=== PATIENT | female | born 1970 | race Caucasian/White ===

== ENCOUNTER → 2017-08-15 12:11 | Outpatient (CLI) | payer BC, SELFPAY ==
--- NOTE | 2017-08-15 12:14 | BI_ITS ---
MAMMOGRAPHY - BILATERAL SCREENING REASON FOR EXAM: Female, 46 years old. Routine annual screening examination. PERTINENT HISTORY: Non-contributory. TECHNIQUE: Digital bilateral breast john (3D mammographic acquisition) in the CC and MLO projections. 2-D mediolateral oblique (MLO) and craniocaudad (CC) views of both breasts were obtained. CAD: Full Field Digital Mammography with Computer Added Detection was performed. COMPARISON: Comparison is made with prior study dated July 05, 2016. FINDINGS: Breast Composition: There are scattered areas of fibroglandular density. There are no dominant masses or suspicious calcifications. Stable benign-appearing bilateral axillary lymph nodes. No other significant abnormalities are identified. There has been no significant change since the prior study. BI/SCREENING MAMM (CAD), BILAT IMPRESSION: Stable bilateral screening mammogram. Yearly follow-up mammogram recommended. (A) ASSESSMENT CATEGORY: BIRADS Category 2: Benign. A letter regarding these results will be sent to the patient by the facility within 30 days. Approximately 10% of breast cancers are not detected by mammography. A normal mammogram should not delay biopsy of a clinically suspicious abnormality. [id number] Electronically Signed: Se Bateman MD at 14:16 EDT Tel [phone], Service support ,
== END ==
PROVIDERS: Family Provider Family Medicine; PCP Family Medicine; Visit Provider Obstetrics & Gynecology
DX: Z12.31 Encounter for screening mammogram for malignant neoplasm of breast (principal)
CPT/HCPCS: 77063; 77067

== ENCOUNTER → 2018-12-22 10:37 | Outpatient (CLI) | payer BC, SELFPAY ==
--- NOTE | 2018-12-22 10:41 | BI_ITS ---
MAMMOGRAPHY - BILATERAL SCREENING REASON FOR EXAM: Female, 48 years old. Routine annual screening examination. PERTINENT HISTORY: Non-contributory. TECHNIQUE: Digital bilateral breast francesca (3D mammographic acquisition) in the CC and MLO projections. 2-D mediolateral oblique (MLO) and craniocaudad (CC) views of both breasts were obtained. CAD: Full Field Digital Mammography with Computer Added Detection was performed. COMPARISON: Comparison is made with prior study dated August 15, 2017 and July 05, 2016. FINDINGS: Breast Composition: There are scattered areas of fibroglandular density. There are no dominant masses or suspicious calcifications. Stable benign-appearing bilateral axillary lymph nodes. No other significant abnormalities are identified. There has been no significant change since the prior study. BI/SCREEN MAMM (CAD) W/FRANCESCA BILAT IMPRESSION: Stable bilateral screening mammogram. Yearly follow-up mammogram recommended. (A) ASSESSMENT CATEGORY: BIRADS Category 2: Benign. A letter regarding these results will be sent to the patient by the facility within 30 days. Approximately 10% of breast cancers are not detected by mammography. A normal mammogram should not delay biopsy of a clinically suspicious abnormality. [id number] Electronically Signed: Se Bateman, at 8:51 EST , Service support ,
== END ==
PROVIDERS: Family Provider Family Medicine; PCP Family Medicine; Referring Provider Obstetrics & Gynecology; Visit Provider Obstetrics & Gynecology
DX: Z12.31 Encounter for screening mammogram for malignant neoplasm of breast (principal)
CPT/HCPCS: 77063; 77067

== ENCOUNTER → 2020-02-04 16:22 | Outpatient (CLI) | payer BC, SELFPAY ==
--- NOTE | 2020-02-04 16:24 | BI_ITS ---
MAMMOGRAPHY - BILATERAL SCREENING REASON FOR EXAM: Female, 49 years old. Routine annual screening examination. PERTINENT HISTORY: Non-contributory. TECHNIQUE: Digital bilateral breast francesca (3D mammographic acquisition) in the CC and MLO projections. 2-D mediolateral oblique (MLO) and craniocaudad (CC) views of both breasts were obtained. CAD: Full Field Digital Mammography with Computer Added Detection was performed. COMPARISON: Comparison is made with prior study dated 12/22/2018 and 08/15/2017 FINDINGS: Breast Composition: There are scattered areas of fibroglandular density. There are no dominant masses or suspicious calcifications. Stable small benign appearing bilateral axillary lymph nodes. No other significant abnormalities are identified. There has been no significant change since the prior study. BI/SCREEN MAMM (CAD) W/FRANCESCA BILAT IMPRESSION: Stable bilateral screening mammogram. Yearly follow-up mammogram recommended. (A) ASSESSMENT CATEGORY: BIRADS Category 2: Benign. A letter regarding these results will be sent to the patient by the facility within 30 days. Approximately 10% of breast cancers are not detected by mammography. A normal mammogram should not delay biopsy of a clinically suspicious abnormality. [id number] Electronically Signed: Se Bateman, at 8:11 EST , Service support ,
== END ==
PROVIDERS: PCP Family Medicine; Referring Provider Obstetrics & Gynecology; Visit Provider Obstetrics & Gynecology
DX: Z12.31 Encounter for screening mammogram for malignant neoplasm of breast (principal)
CPT/HCPCS: 77063; 77067

== ENCOUNTER 2021-03-10 13:50 | Outpatient (CLI) | payer BC, SELFPAY ==
--- NOTE | 2021-03-10 13:54 | BI_ITS ---
MAMMOGRAPHY - BILATERAL SCREENING REASON FOR EXAM: Female, 50 years old. Routine annual screening examination. PERTINENT HISTORY: Non-contributory. TECHNIQUE: Digital bilateral breast francesca (3D mammographic acquisition) in the CC and MLO projections. 2-D mediolateral oblique (MLO) and craniocaudad (CC) views of both breasts were obtained. CAD: Full Field Digital Mammography with Computer Added Detection was performed. COMPARISON: Comparison is made with prior study dated 02/04/2020 and 12/22/2018. FINDINGS: Breast Composition: There are scattered areas of fibroglandular density. There are no dominant masses or suspicious calcifications. No other significant abnormalities are identified. There has been no significant change since the prior study. BI/SCRN MAMM (CAD)W/FRANCESCA BILAT IMPRESSION: Stable bilateral screening mammogram. Yearly follow-up mammogram recommended. (A) ASSESSMENT CATEGORY: BIRADS Category 1: Negative. A letter regarding these results will be sent to the patient by the facility within 30 days. Approximately 10% of breast cancers are not detected by mammography. A normal mammogram should not delay biopsy of a clinically suspicious abnormality. [id number] Electronically Signed: Se Bateman MD at 14:28 EST ,
== END 2021-03-10 23:59 | disposition short-term general hospital (02) ==
LOC: OPBI 13:51
PROVIDERS: PCP Family Medicine; Referring Provider Obstetrics & Gynecology; Visit Provider Obstetrics & Gynecology
DX: Z12.31 Encounter for screening mammogram for malignant neoplasm of breast (principal)
CPT/HCPCS: 77063; 77067

== ENCOUNTER → 2021-10-11 | Outpatient (CLI) | payer BC, SELFPAY ==
[2021-10-11] VITALS (9 sets, daily range): BP systolic 131–170; BP diastolic 62–104; PULSE 59–73; RESP 13–21; TEMP 36.6; O2SAT 95–99; BMI 31.3
--- NOTE | 2021-10-11 | IMM_PTH ---
PATIENT: JAYLIN GRIMM LOC: CT U#:[id number] AGE/SX: 51/F ROOM: RE10/11/[address]: Dr. Steve Merchant MD : 1970 BED: DIS: 10/11/2021 SPEC #: [id number] RECD: 10/12/21 12:28 STATUS: CRICKET REVeronique #: [id number] RUBÉN: 10/11/21 00:[address]: Steve Merchant DEPT: IMMUNOHISTOCHEMISTRY RECD BY: Lynsey Jacob ENTERED: 10/12/21 12:30 SP TYPE: IMMUNO OTHR DR: VERONICA Fernandez Tissues: Liver, NOS Procedures: Synapto (add) CD138 (add) CD56 (add) CHROMO (add) CK7 (add) CK8 (add) KAPPA (add) KI-67 (add) LAMBDA (add) Pankeratin (initial) PHYSICIAN & INSTITUTION [place] [id number] SPECIMEN INFORMATION: Tissue Source: Left lobe of liver Clinical Info: Liver mass Specimen Number: [id number] CPT code: 22173, 09955 x9 METHODOLOGY: Deparaffinized sections of prefer/formalin-fixed tissue or PAP/DQ stained slides are incubated with monoclonal/polyclonal antibodies/oligonucleotide probes. Localization is made via biotin free immunoperoxidase method. Appropriate controls are performed and reacted as expected. Results on target cell population are indicated in the following table: RESULTS: ANTIBODY / CLONE RESULT AE1-3 (AE1/AE3/PCK26) positive CK7 (OV-TL12/30) negative CK8 (96mtarA35) positive CD138 (B-A38) negative Lacoste (polyclonal) negative * Lambda (polyclonal) negative * CD56 (123C3.D5) positive Chromo (LK2H10) positive Synapto (polyclonal) positive Ki-67 (30-9) positive, low ~10% *?high background staining These tests were developed and their performance characteristics determined by [facility]. They may not have been cleared or approved by the U.S. Food and Drug Administration. The FDA has determined that such clearance or approval is not necessary. The above immunohistochemical/dualISH markers are ordered and reviewed by the Pathologist. 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 SJ:merrill 10/13/2021 Comment: Clinical correlation necessary. Case has been reviewed in consultation with Dr. Christy who concurs with the above diagnosis. IDC:AM
--- NOTE | 2021-10-11 | ASPIGT_PTH ---
PATIENT: JAYLIN GRIMM LOC: [place] U#:[id number] AGE/SX: 51/F ROOM: RE10/11/[address]: Dr. 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 See comment. FLORENTIN:merrill 10/13/2021 COMMENT The specimen is evaluated at the time of biopsy by Dr. Cai. Immediate Evaluation = Atypical cells noted. Immunohistochemistry ([id number]) supports the above diagnosis. Correlation with clinical, radiologic findings and appropriate follow up are necessary. Case has been reviewed in consultation with Dr. Christy who concurs with the above diagnosis. IDC:AM MICROSCOPIC DESCRIPTION Slides are reviewed. GROSS DESCRIPTION Received in fixative is one container labeled with the patient's name and designated liver left lobe. The specimen consists of multiple elongated fragments of lorenzo soft tissue that in aggregate measure 2.5 x 0.2 x 0.1 cm. The specimen is totally submitted in one cassette. Two touch imprints are prepared at the time of core biopsy. / FLORENTIN:merrill 10/11/2021 TC:0 CPT: 32038, 36140 ADDENDUM ADDENDUM ADDENDUM ADDENDUM ADDENDUM ADDENDUM ADDENDUM ADDENDUM ADDENDUM ADDENDUM 01/24/2022 09:46 ADDENDUM 01/24/2022 09:46 ADDENDUM 01/24/2022 09:46 ADDENDUM 01/24/2022 09:46 ADDENDUM 01/24/2022 09:46 This addendum is added to incorporate an outside pathology consultation report. The case was examined at [facility] (#[id number]) and the following diagnosis was rendered. Metastatic well differentiated neuroendocrine tumor, grade 2: Soft tissue (liver, left lobe) biopsy. Please see complete above mentioned consultation report in EMR
--- NOTE | 2021-10-11 08:06 | CT_ITS ---
PROCEDURE: CT DIRECTED CORE LIVER BIOPSY INDICATION: Female, 51 years old. LIVER MASS PHYSICIAN: Dr. JAZ Bryant CONSENT: Written informed consent was obtained having explained the risks, benefits and alternatives in detail with the patient who accepted the risks and agreed to proceed. Laboratory review and clinical assessment was performed. CONSCIOUS SEDATION PROTOCOL: The Drugs used were: 2 mg Versed, IV., and 50 mcg Fentanyl, IV. The sedation time was: 25 minutes. Conscious sedation was started at 8:58 AM and terminated at 9:23 AM The conscious sedation protocol was independently monitored. RADIATION DOSAGE (If Supplied By Facility): CTDIvol = ( 22 ) mGy, DLP = ( 885.87 ) mGycm Individualized dose optimization techniques were used for this CT. TECHNIQUE: Using CT image guidance with image documentation, a suitable location in the left lobe of the liver was identified. Using an anterior approach, puncture of the liver was uneventful with an 18-gauge core needle system. 5, 18-gauge core samples were obtained, and submitted in formalin to the pathologist for further assessment. Followup CT scan revealed no distinct sequelae. CT/Biopsy/Inj or Needle Placement IMPRESSION: 1. CT directed core needle biopsy of the liver, using CT image guidance with image documentation as described. 2. Conscious Sedation protocol utilized with independent monitoring. Electronically Signed: Se Bateman MD at 9:51 EDT ,
[2021-10-11 08:11] LABS: Absolute Lymphocyte Count 1.74 X10^3/uL (0.83-4.51); Absolute Neutrophil Count 3.2 X10^3/uL (2.0-7.7); Basophil# 0.08 X10^3/uL; Basophil% 1.4 % (0-1); Eosinophil# 0.22 X10^3/uL; Eosinophils% 3.9 % (0-5); Hematocrit 42.1 % (37-47); Hemoglobin 14.3 g/dL (12.0-15.0); Lymphocyte # 1.74 X10^3/ul (0.83-4.51); Lymphocyte % 30.5 % (19-41); Mean Corpuscular Volume 88.3 fL (81-99); Mean Platelet Vol. 8.7 fl (6.2-12.0); Monocyte# 0.41 X10^3/uL; Monocyte% 7.2 % (0-10); NRBC Flagged by Analyzer 0 % (0-5); Neutrophil # 3.23 X10^3/uL (2.7-7.7); Neutrophil % 56.6 % (47-70); Platelet Count 303 K/mm3 (150-450); RBC Distribution Width CV 12.6 % (11.6-14.6); Red Blood Count 4.77 M/mm3 (4.2-5.4); White Blood Count 5.7 K/mm3 (4.4-11.0)
[2021-10-11 08:22] LABS: International Normalized Ratio 1.1
[2021-10-11 08:24] LABS: Partial Thromboplast Time 27.4 Seconds (24.1-36.2)
[2021-10-11] MEDS: Midazolam 2 MG/2 ML Syringe IV (08:58)
[2021-10-11] MEDS: fentaNYL 100 MCG/2 ML Ampul IV (08:59)
[2021-10-11] MEDS: Lidocaine 2% (10 ml mdv) 10 ML Vial INFILT (09:10)
== END | disposition home or self-care (01) ==
PROVIDERS: Referring Provider Internal Medicine Medical Oncology; Visit Provider Internal Medicine Medical Oncology
DX: K76.89 Other specified diseases of liver (principal)
CPT/HCPCS: 47000; 36415; 77012; 85025; 85610; 85730; 88172; 88305; 88307; 88313; 88341; 88342; 99156; J7050; A4216

== ENCOUNTER → 2021-11-02 | Outpatient (CLI) | payer BC, SELFPAY ==
--- NOTE | 2021-11-02 10:57 | ECHOD_ITS ---
Reason For Study: R/O Carcinoid heart disease Procedure This was a 2D Doppler, Color Flow transthoracic echocardiogram. Myocardial strain analysis was performed in this exam to aid in the assessment of cardiac function. The exam was of adequate technical quality. Exam performed in department. Left Ventricle Normal LV size. Left ventricular systolic function is normal. The estimated ejection fraction is 55 %. No evidence for diastolic dysfunction. No regional wall motion abnormalities noted. Right Ventricle Normal RV size. Normal systolic function. Atria Normal left atrium. Normal right atrium. No doppler evidence for ASD. Mitral Valve There is mild mitral annular calcification. Normal mitral valve. Trivial mitral valve insufficiency. Tricuspid Valve Normal tricuspid valve. Trivial tricuspid valve insufficiency. Right ventricular systolic pressure estimated to be 27 mmHg. Aortic Valve Trisinus/trileaflet aortic valve. Normal aortic valve. Pulmonic Valve The pulmonic valve is not well visualized. Great Vessels Normal sized aortic root. Pericardium/Pleural No pericardial effusion. MMode/2D Measurements & Calculations LVIDd: 4.8 cm IVSd: 0.89 cm Ao root diam: 3.5 cm LVIDs: 3.5 cm LVPWd: 0.81 cm RVDd: 3.6 cm FS: 26.5 % LAV(MOD-bp): 38.6 ml LA A4 area: 13.4 cm2 LA dimension(2D): 3.2 cm LAV(MOD-bp) Indexed: 19.0 ml/m2 LAV(MOD-sp2): 38.8 ml LAV(MOD-sp4): 32.6 ml RA A4 area: 12.8 cm2 Time Measurements MV dec time: 0.23 sec Doppler Measurements & Calculations MV E max candelario: 47.8 cm/sec Lat Peak E' Candelario: 9.5 cm/sec Med Peak E' Candelario: 10.0 cm/sec MV A max candelario: 45.6 cm/sec E/E' lat: 5.1 E/E' med: 4.8 MV E/A: 1.0 MV dec slope: 210.8 cm/sec2 Ao V2 max: 115.5 cm/sec LV V1 max: 81.9 cm/sec Ao max P.3 mmHg LV V1 max P.7 mmHg Ao V2 mean: 81.6 cm/sec LV V1 mean P.6 mmHg Ao mean P.0 mmHg LV V1 mean: 58.5 cm/sec Ao V2 VTI: 27.3 cm LV V1 VTI: 14.9 cm PA V2 max: 81.6 cm/sec TR max candelario: 244.5 cm/sec TR max P.9 mmHg ECHO/Echo Complete Interpretation Summary Left ventricular systolic function is normal. The estimated ejection fraction is 55 %. There is mild mitral annular calcification. Trivial mitral valve insufficiency. Trivial tricuspid valve insufficiency. Right ventricular systolic pressure estimated to be 27 mmHg. No evidence for diastolic dysfunction. Ordering Physician: Steve Merchant Referring Physician: Jo Ann Vargas Performed By: Mel Bonds, KATHI, RVT
== END | disposition home or self-care (01) ==
LOC: CVS 10:54
PROVIDERS: Referring Provider Internal Medicine Medical Oncology; Visit Provider Internal Medicine Medical Oncology
DX: I51.89 Other ill-defined heart diseases (principal); E34.0 Carcinoid syndrome; D3A.8 Other benign neuroendocrine tumors
CPT/HCPCS: 93306

== ENCOUNTER 2023-10-02 07:02 | Observation (INO) | payer BC, SELFPAY ==
--- NOTE | 2023-09-14 13:53 | EKG12_ITS ---
Test Reason : PREOP Blood Pressure : / mmHG Vent. Rate : 074 BPM Atrial Rate : 074 BPM P-R Int : 146 ms QRS Dur : 080 ms QT Int : 380 ms P-R-T Axes : 057 042 027 degrees QTc Int : 421 ms Normal sinus rhythm Low voltage QRS Borderline ECG Confirmed by SEGUN LORENZO, WENDY ([id number]), assignment editor DARRYL CORTES ([id number]) on 09/15/2023 10:28:01 AM Referred By: Valentin Mc Confirmed By:SOLOMON CAST MD
[2023-09-14 15:05] LABS: Absolute Lymphocyte Count 1.59 X10^3/uL (0.83-4.51); Absolute Neutrophil Count 2.6 X10^3/uL (2.0-7.7); Basophil# 0.07 X10^3/uL; Basophil% 1.4 % (0-1); Eosinophil# 0.11 X10^3/uL; Eosinophils% 2.2 % (0-5); Hematocrit 37.6 % (37-47); Hemoglobin 12.3 g/dL (12.0-15.0); Lymphocyte # 1.59 X10^3/ul (0.83-4.51); Lymphocyte % 31.9 % (19-41); Mean Corp Hgb Conc 32.7 g/dL (32-36); Mean Corpuscular Hgb 29.2 pg (27.0-32.0); Mean Corpuscular Volume 89.3 fL (81-99); Mean Platelet Vol. 8.8 fl (6.2-12.0); Monocyte# 0.63 X10^3/uL; Monocyte% 12.7 % (0-10); NRBC Flagged by Analyzer 0 % (0-5); Neutrophil # 2.57 X10^3/uL (2.7-7.7); Neutrophil % 51.6 % (47-70); Platelet Count 347 K/mm3 (150-450); RBC Distribution Width CV 15.9 % (11.6-14.6); RBC Distribution Width SD 51.9 fl (35.1-43.9); Red Blood Count 4.21 M/mm3 (4.2-5.4)
[2023-09-14 15:19] LABS: Albumin, Serum 3.3 g/dL (3.2-5.0); Anion Gap 3 (5-15); BUN 20 mg/dL (7-18); BUN/Creat Ratio 24.3 RATIO (10-20); Calcium,Total 8.7 mg/dL (8.5-10.1); Chloride 109 mmol/L (98-107); Creatinine, Serum 0.82 mg/dL (0.55-1.02); EST Glomerular Filtration Rate 77 mL/min (>60); Est Glom Filt Rate - Afr Amer 94 mL/min (>60); Glucose 98 mg/dL (74-106); Magnesium 2.2 mg/dL (1.6-2.6); Potassium 3.9 mmol/L (3.5-5.1); Sodium Level 140 mmol/L (136-145)
[2023-10-02] VITALS (16 sets, daily range): BP systolic 104–144; BP diastolic 47–85; PULSE 60–84; RESP 16–18; TEMP 36.1–36.8; O2SAT 95–100; BMI 37.9
--- NOTE | 2023-10-02 | HIP_PTH ---
PATIENT: JAYLIN GRIMM LOC: MS3 U#:[id number] AGE/SX: 53/F ROOM: LA310 RE10/02/[address]: Dr. Valentin Mc MD : 1970 BED: 1 DIS: 10/03/2023 SPEC #: [id number] RECD: 10/02/23 12:48 STATUS: CRICKET REGAN #: [id number] RUBÉN: 10/02/23 00:[address]: Valentin Mc DEPT: SURGICAL PATHOLOGY RECD BY: Sy Martinez ENTERED: 10/02/23 12:48 SP TYPE: TOTAL HIP OTHR DR: MD Jo Ann Mckee PA Tissues: Hip, NOS Procedures: Decalcification bone/plaque Surgery Specimen Level IV HEADER OPERATION: Right total hip, anterior approach PRE-OP DIAGNOSIS: Severe right hip osteoarthritis TISSUE SUBMITTED: Right hip femoral head bone and tissue MICROSCOPIC DIAGNOSIS Bone and tissue of right hip, total hip resection: Severe degenerative joint disease. Mild synovial hyperplasia. AM: 10/05/2023 MICROSCOPIC DESCRIPTION Slides are reviewed. GROSS DESCRIPTION Received is one container labeled with the patient's name and designated bone and soft tissue right hip. The specimen consists of a lorenzo femoral head (with portion of femoral neck). The femoral head measures 5.0 x 5.0 x 4.5 cm. A detached piece of bone consistent portion of femoral neck measures 3.5 x 2.5 x 1.5cm. The articular surface displays prominent osteophyte formation, eburnation and bone erosion. Also present in the specimen container are multiple irregular fragments of bone reamings and pink-yellow soft tissue measuring in aggregate 9.0 x 7.0 x 2.5 cm. Wait[employer] sections are submitted in two cassettes as follows: 1 - soft tissue, 2 - bone after decalcification. / FLORENTIN/ 10/02/2023 TC:5 CPT: 42406, 14179
[2023-10-02] MEDS: Acetaminophen 500 MG Tablet 1000 MG PO ×3 (07:15→22:01)
[2023-10-02] MEDS: Celecoxib 200 MG Capsule 400 MG PO (07:15)
[2023-10-02] MEDS: Gabapentin 600 MG Tablet PO (07:16)
[2023-10-02] MEDS: Magnesium 1 GM over 15 mins IV (07:24)
--- NOTE | 2023-10-02 07:32 | PRE.ANES_ITS ---
ASA Classification* ASA Classification ASA Classification: 3 Assessment & Plan Anesthesia* Anesthesia Assessment Anesthesia Assessment: Discussed sedation and/or anesthesia options, risks, benefits, and alternatives with patient/parents/legal guardian/POA. Questions invited. The patient/parents/legal guardian/POA seems to understand and agrees to proceed with anesthesia plan. Reviewed the physical assessment, medical history, allergy history and patient home medications list prior to surgery/procedure/anesthetic and documented any changes. Performed airway and anesthesia risk assessments. Anesthesia Type Anesthesia Type: General (see written pre anesthesia record for full assessment) Anesthesia Focused Assessment* Temperature: 98.3 F Pulse Rate: 73 Blood Pressure: 143/85 Respiratory Rate: 16 Pulse Ox: 100 Airway Assessment Mouth opens: >3 cm Mallampati Score: II Focused Labs Anesthesia Preop lab: CBC WBC 5.0 K/mm3 (4.4-11.0) 09/14/23 14:09 RBC 4.21 M/mm3 (4.2-5.4) 09/14/23 14:09 Hgb 12.3 g/dL (12.0-15.0) 09/14/23 14:09 Hct 37.6 % (37-47) 09/14/23 14:09 Plt Count 347 K/mm3 (150-450) 09/14/23 14:09 CHEMISTRY Potassium 3.9 mmol/L (3.5-5.1) 09/14/23 14:09 Sodium 140 mmol/L (136-145) 09/14/23 14:09 Magnesium 2.2 mg/dL (1.6-2.6) 09/14/23 14:09 BUN 20 mg/dL (7-18) H 09/14/23 14:09 Creatinine 0.82 mg/dL (0.55-1.02) 09/14/23 14:09 Glucose 98 mg/dL (74-106) 09/14/23 14:09 COAG PT 14.0 SECONDS (11.7-14.9) 10/11/21 08:01 Pre-Assessment Diagnosis/Proposed Procedure Planned Operative Procedure(s): DIRECT ANTERIOR RIGHT TOTAL HIP ARTHROPLASTY Anesthesia History 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 When Was Last Pacemaker Check QUESTION #4 FULL TEXT: You/Your Family Experience fever (hyperthermia) with Anesthesia Last Oral Intake Last Oral intake: Last Oral Intake NPO since 04:30 10/02/23 07:19 Meds taken in AM with sips of No 10/02/23 07:19 water? 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 Female Yes 09/08/23 09:36 HX of Motion Sickness No 09/08/23 09:36 HX of N/V After Surgery No 09/08/23 09:36 Non-Smoker Yes 09/08/23 09:36 Duration of Surgery greater Yes 09/08/23 09:36 than 60 minutes Number of Risk Factors 3 09/08/23 09:36 PONV Score Moderate Risk 09/08/23 09:36 Height & Weight Height & Weight: Anesthesia: Height & Weight Height 5 ft 6 in 10/02/23 07:19 Weight: 106.6 kg 10/02/23 07:19 Body Mass Index (BMI) 37.9 10/02/23 07:19 Respiratory Assessment Respiratory Assessment - vending 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 Has anyone observed you stop No 09/08/23 09:36 breathing during sleep? STOP Results Negative 09/08/23 09:36 QUESTION #5 FULL TEXT : Do you snore loudly (louder than talking or can be heard through closed doors)? 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 Specify any problems Hx of Preganancy in last 3 No 09/08/23 09:36 Months Nurse Filling Out Transfusion DSCHRIBER 09/08/23 09:36 & Questions: Date: 09/08/23 09/08/23 09:36 Time: 09:38 09/08/23 09:36 Patient unable to answer at this time (ie. 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 coin collector: /Reproductive Hx- vending machine coin collector Hx Now No 09/08/23 09:36 Gestational Age (in weeks): EDC: Hx Hx Para Hx Section SAB No 09/08/23 09:36 Active Medications Active Medications: Current Medications Generic Name Dose Route Start Last Admin Trade Name Freq PRN Reason Stop Dose Admin Acetaminophen 1,000 mg 10/02/23 08:45 10/02/23 07:15 Acetaminophen 500 Mg Tablet PO 10/02/23 08:46 1,000 mg X1 ONE Administration Acetaminophen 1,000 mg 10/02/23 14:00 Acetaminophen 500 Mg Tablet PO Q8 DEBBIE Apixaban 5 mg 10/03/23 10:00 Apixaban 5 Mg Tablet PO BID DEBBIE Celecoxib 400 mg 10/02/23 08:45 10/02/23 07:15 Celecoxib 200 Mg Capsule PO 10/02/23 08:46 400 mg X1 ONE Administration Tranexamic Acid 2,000 mg/ 0 mg 10/02/23 08:45 Sodium Chloride 100 ml OPERA.SITE 10/02/23 08:46 X1 ONE Sodium Chloride 77.4 ml/ 0 ml 10/02/23 08:45 Ropivacaine 200 mg/ OPERA.SITE 10/02/23 08:46 Epinephrine HCl 0.6 mg/ X1 ONE Ketorolac Tromethamine 30 mg/ Morphine Sulfate 5 mg Dexamethasone Sodium Phosphate 10 mg 10/02/23 08:45 Dexamethasone 10 Mg/Ml Vial IV 10/02/23 08:46 X1 ONE Docusate Sodium 100 mg 10/02/23 07:01 Docusate Sodium 100 Mg Capsule PO BID PRN PRN Constipation Enteral Nutritional Formula 237 ml 10/02/23 08:00 Ensure Surgery 237 Ml Liquid PO TIDCM DEBBIE Famotidine 20 mg 10/02/23 10:00 Famotidine 20 Mg Tablet PO DAILY DEBBIE Gabapentin 600 mg 10/02/23 08:45 10/02/23 07:16 Gabapentin 600 Mg Tablet PO 10/02/23 08:46 600 mg X1 ONE Administration Cefazolin Sodium 2 gm/ Sodium 110 mls @ 150 mls/hr 10/02/23 08:45 Chloride IV 10/02/23 09:28 PREOP ONE Lactated Ringer's 1,000 mls @ 999 mls/hr 10/02/23 09:30 IV 10/02/23 10:30 .Q1H1M DEBBIE Lactated Ringer's 1,000 mls @ 125 mls/hr 10/02/23 10:30 IV 10/02/23 18:29 .Q8H [facility] Magnesium Sulfate 1 gm/ 102 mls @ 408 mls/hr 10/02/23 08:45 10/02/23 07:24 Dextrose IV 10/02/23 08:59 408 mls/hr X1 ONE Administration Cefazolin Sodium 1 gm in 50 mls @ 150 mls/hr 10/02/23 14:00 IV 10/02/23 22:19 Q8 DEBBIE Insulin Human Lispro 1 - 6 unit 10/02/23 08:45 Insulin Lispro 100 Unit/Ml Insuln.Pen SC 10/02/23 14:45 Q4H PRN PRN BG>/= 180, SEE PROTOCOL Protocol Ketorolac Tromethamine 15 mg 10/02/23 07:02 Ketorolac 15 Mg/Ml Vial IV 10/04/23 07:03 Q6H PRN PRN Pain Score 1-5 Lisinopril mg 10/02/23 10:00 Lisinopril 20 Mg Tablet PO DAILY [facility] Protocol Morphine Sulfate 2 - 4 mg 10/02/23 07:02 Morphine 2 Mg/Ml Syringe IV Q2H PRN PRN Pain Score 4-10 Non-Formulary Medication 10 mcg 10/02/23 10:00 Cholecalciferol (Vitamin D3) PO DAILY [facility] Ondansetron HCl 4 mg 10/02/23 07:02 Ondansetron 4 Mg/2 Ml Vial IV Q8H PRN PRN NAUSEA Oxycodone HCl 5 - 10 mg 10/02/23 07:02 Oxycodone 5 Mg Tablet PO Q4H PRN PRN Pain Score 4-10 Promethazine HCl 12.5 mg 10/02/23 07:02 Promethazine 25 Mg/Ml Syringe IM Q6H PRN PRN NAUSEA/VOMITING Protocol Senna/Docusate Sodium 2 tablet 10/02/23 10:00 Senna/Docusate Sodium 1 Tablet PO BID [facility] PFSH Medical History Wears glasses Cancer Arthritis Back pain Former smoker Shortness of breath on exertion History of pain when walking History of edema Hypertension Cardiology follow-up encounter History of echocardiogram Other secondary neuroendocrine tumors Encounter for education Carcinoid heart disease Hx of blood clots Home Medications ?Medication ?Instructions ?Recorded ?Last Taken ?Type docusate sodium 100 mg capsule 100 mg PO BID PRN PRN Constipation 01/02/14 Unknown Rx (DOK) #60 caps apixaban 5 mg tablet (Eliquis) 5 mg PO BID 10/01/21 09/29/23 History lisinopril 20 mg tablet 20 tablet PO DAILY 10/01/21 10/01/23 History cholecalciferol (vitamin D3) 10 10 mcg PO DAILY 11/09/21 09/30/23 History mcg (400 unit) capsule Allergy/AdvReac Type Severity Reaction Status Date / Time No Known Allergies Allergy Verified 09/08/23 09:33 Family History Father Hypertension Diabetes Mother Pancreatic cancer Brother Hypertension Diabetes Surgical History History of pancreatectomy Hx of resection of liver Hx of hysterectomy Social History Smoking Status: Former smoker alcohol intake: never substance use type: does not use Review of Systems (Anesthesia) ROS Narrative System reviewed and no additional complaints, except as documented.
--- NOTE | 2023-10-02 08:00 | RAD_ITS ---
STUDY: X-RAY - RIGHT HIP REASON FOR EXAM: Female, 53 years old. PAIN TECHNIQUE: 3 fluoroscopic spot films of the right hip. COMPARISON: None. FINDINGS: There has been successful placement of a new right hip arthroplasty. There is no periprosthetic fracture. There is adjacent soft tissue gas, compatible with recent surgery. There is a non-specific bowel gas pattern. Normal visualized soft tissue structures. Normal visualized right iliac wings. Normal right superior and inferior pubic rami. Normal pubic symphysis. Normal bilateral ischial tuberosities. RAD/Hip 1 view with Pelvis IMPRESSION: Successful placement of a new right hip arthroplasty. Electronically Signed: Steve Pearson MD at 8:29 EDT ,
[2023-10-02] MEDS: Cefazolin 2 GM in 0.9% Normal Saline (100mL Bag) 100 ML IV (08:17)
[2023-10-02] MEDS: dexAMETHasone 10 MG/ML Vial IV (08:23)
[2023-10-02 09:03] LABS: INR Fingerstick 1.4; Prothrombin Time Fingerstick 15.3 SEC (11.7-14.9)
--- NOTE | 2023-10-02 09:34 | PCM.OPRPT ---
Report of Operation Date of Procedure: 10/02/23 Pre-Operative Diagnosis: Right hip primary osteoarthritis Post-Operative Diagnosis: Right hip primary osteoarthritis Surgery/Procedure Performed:: Right minimally invasive direct anterior total hip replacement Description of Surgical Findings:: Stable hip with equal leg length Surgeon: Valentin Mc apartment leasing consultant: Dominic Michaels Type of Anesthesia: General Anesthesiologist: Alvaro Vickers Special Medications: 2 g Ancef, 1 g TXA at incision, 1 g TXA closure, 10 mg Decadron, joint cocktail (5 mg Duramorph, 30 mL of 0.5% Ropivicaine, 1000 units of epinephrine, 30 mg of Toradol) Specimen's removed: Bony cuts Estimated Blood Loss (mL): 350 Fluids Replaced: 1200 ml crystalloid Description of Procedure: Components used: 1. Insignia [place] femoral stem size 5 standard 2. Eliot trident 2 acetabular shell size 54 mm 3. Eliot X3 polyethylene E 4. [place] Biolox delta 36mm, -5mm femoral head Brief history operative indications: 53 yo F who failed conservative measures for their hip osteoarthritis. X-rays were consistent with osteoarthritis including joint space narrowing, osteophyte formation and subchondral cysts. Total hip replacement was discussed with the patient with risks and benefits including but not limited to blood loss, DVTs, PEs, neurovascular damage, dislocation, general risks of anesthesia including loss of life. Patient demonstrated an understanding medical clearance is obtained the patient was consented for surgery. Procedure: On the date of procedure the patient's right hip was marked in the preoperative area. Patient was then taken back to the operating room where anesthesia assumed control of the C-spine and airway and administered anesthetic. Patient was transferred to the operating table and placed in the supine position. The hips were placed at the break of the bed and a sacral bump was placed. The right lower extremity was then prepped out in a sterile fashion using chlorhexidine while the surgeon scrubbed. The PA was vital in the positioning of the patient. Upon reentering the room the right lower extremity was draped in the standard orthopedic fashion and the incision was marked. A timeout was called and everyone agreed upon the side, the site, the procedure be performed, antibody given, and patient's identity. At this time incision was made through skin, subcutaneous tissue, and fat down to fascia. The fascia was then incised and the TFL was retracted laterally. A retractor was placed on the lateral border of the femoral neck. Attention was directed to the inferior portion of the approach and all crossing vessels were identified and appropriately coagulated. A retractor was then placed on the medial portion of the femoral neck. The anterior capsule was then cleared of all soft tissue and then H shaped capsulotomy was made. The retractors were then placed inside the capsule. The femoral neck was identified and a cleanup cut was made. At this time a power corkscrew was used to remove the femoral head. Attention was then turned toward the acetabulum where the soft tissues were appropriately retracted and the acetabulum was sequentially reamed to 54 mm. A 54 mm cup was then selected and impacted into place. Acetabular liner was impacted into place and locking mechanism was verified. The position of the acetabular cup was then verified under live fluoroscopy. Attention was then turned to the femur. Soft tissue releases on the medial and lateral femoral neck were appropriately done, the leg was externally rotated and lateralized. A Colón retractor was placed medially and proximally to the greater trochanter this allowed appropriate visualization and exposure of the femoral canal. Rongeour was then used to remove excess lateral bone. A canal finder and entry broach were used to open the proximal canal. Once we verified we were down the femoral canal we subsequently broached up to a size 5 femur. The appropriate neck was placed in the previously selected head was trialed with a -5 mm neck. Traction was pulled and the hip was reduced with internal rotation. Once it was appropriately reduced and stability was checked. There was minimal shuck, equal leg lengths and appropriate stability with hyperextension and external rotation as well as with 90? flexion and internal rotation. Fluoroscopy was then also used to verify the position of the components and leg lengths using the contralateral side for comparison. The trial components were then dislocated the proximal femur was again exposed and the components were removed from the wound. The final components were verified and opened. The wound was copiously irrigated out with normal saline. The acetabulum was checked for any residual debris. The final components were placed and impacted. Traction and internal rotation were again used to reduce the hip. After adequate reduction the hip remained stable with appropriate leg lengths. The final components were once again checked with live fluoroscopy and were found to be satisfactory. The wound was then copiously irrigated with normal saline once more, and hemostasis was obtained. Closure was then done using #1 Vicryl runner to close the fascia. A 2-0 vicryl interuppted sutures were used to close the subcutaneous skin. A 3-0 Monocryl and Steri-Strips were used for final skin closure. A Silverlon dressing was placed. Patient was awakened by anesthesia and transferred to the [facility]. Patient was then transferred to the PACU for recovery. During the course of the procedure the physician gi physician (PE) played a vital role. Their intimate knowledge of my steps in the procedure aided in safe and expedient completion of the procedure. The PE played a vital rolls in positioning particularly in obtaining the appropriate positioning of the sacral bump. The PE was also vital in the retraction of soft tissues during the exposure and especially the femoral work as this is a vital part of the procedure to prevent complications and fractures. The PE was also vital and protecting soft tissues during times of bony cuts and reaming. He also played a vital role in closure with my direct supervision. The PE was also important during reduction and dislocation of the joint and trials intraoperatively. Postoperative plan: Patient will get 24 hours postop antibiotics. Patient will get in-house physical therapy and will be weight-bear as tolerated. Patient will follow up in office in 2 weeks for a wound check and x-rays. Resume Eliquis tomorrow for DVT prophylaxis Complications No intraoperative complications Admit VTE Documentation VTE Present on Admission: No VTE Mechan Device Prophylaxis: SCD's and Thigh High MARY ANN Hose VTE Pharm Prophylaxis ordered?: Yes
[2023-10-02 09:35] LABS: Bedside Glucose 90 mg/dL (74-106)
[2023-10-02] MEDS: JPS (Morphine 10mg/ml) OPERA.SITE (09:38)
[2023-10-02] MEDS: TXA in NS 100ml (Placed in Wound) OPERA.SITE (09:42)
--- NOTE | 2023-10-02 10:30 | RAD_ITS ---
STUDY: X-RAY - PELVIS AND RIGHT HIP REASON FOR EXAM: Female, 53 years old. Post Op -- AP both hips on single kevin/lateral of op hip PACU TECHNIQUE: 2 views of the pelvis and hip. COMPARISON: None. FINDINGS: The patient is status post right total hip replacement. There is good alignment. Postoperative soft tissue changes. RAD/Hip Min 2 Views (Portable) IMPRESSION: Status post right total hip replacement. There is good alignment. Postoperative soft tissue changes. Electronically Signed: Se Bateman MD at 11:04 EDT ,
[2023-10-02] MEDS: Lactated Ringers 1,000 ML 999 ML IV (10:46)
--- NOTE | 2023-10-02 11:12 | SUR.PHASEI ---
awaiting room on ms3
[2023-10-02] MEDS: Lactated Ringers 1,000 ML 125 ML IV (11:13)
--- NOTE | 2023-10-02 11:17 | PCM.POST.ANE ---
Anesthesia: Postop Eval I Current Vital Signs Temperature: 97.9 F Pulse Rate: 80 Blood Pressure: 118/67 Respiratory Rate: 16 Pulse Ox: 96 Oxygen Delivery Method: Room Air Assessment Airway patent: Yes Spontaneous unlabored respirations: Yes Mental status: Awake and Calm nausea: No Vomiting: No Anesthesia Complication: No Fluid Hydration Crystalloid volume administer (ml): 1,200 Total IV fluid infused: 1,200 Progress Note Anesthesia document: Postop Eval 1 completed: Yes
--- NOTE | 2023-10-02 11:28 | EKG12_ITS ---
Test Reason : Blood Pressure : / mmHG Vent. Rate : 072 BPM Atrial Rate : 072 BPM P-R Int : 162 ms QRS Dur : 090 ms QT Int : 424 ms P-R-T Axes : 064 054 034 degrees QTc Int : 464 ms Sinus rhythm with occasional Premature ventricular complexes Otherwise normal ECG When compared with ECG of 14-SEP-2023 14:01, Premature ventricular complexes are now Present Confirmed by Kyle Evangelista ([id number]), state editor CARTER WISEMAN ([id number]) on 10/13/2023 1:24:20 PM Referred By: Valentin Mc Confirmed By:Kyle Evangelista
--- NOTE | 2023-10-02 11:34 | EKG12_ITS ---
Test Reason : Blood Pressure : / mmHG Vent. Rate : 068 BPM Atrial Rate : 068 BPM P-R Int : 166 ms QRS Dur : 090 ms QT Int : 434 ms P-R-T Axes : 063 051 032 degrees QTc Int : 461 ms Poor data quality, interpretation may be adversely affected Sinus rhythm with occasional Premature ventricular complexes Otherwise normal ECG When compared with ECG of 02-OCT-2023 11:28, MANUAL COMPARISON REQUIRED, DATA IS UNCONFIRMED Confirmed by Kyle Evangelista ([id number]), editor continuity and script DARRYL CORTES ([id number]) on 10/13/2023 6:42:23 AM Referred By: Valentin Mc Confirmed By:Kyle Evangelista
--- NOTE | 2023-10-02 11:35 | POSTOPAN2_ITS ---
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 Spontaneous unlabored Yes 10/02/23 11:18 FIBER OPTIC ASSEMBLY WORKER.MDOT respirations Mental status Awake,Calm 10/02/23 11:18 FIBER OPTIC ASSEMBLY WORKER.MDOT nausea No 10/02/23 11:18 FIBER OPTIC ASSEMBLY WORKER.MDOT Vomiting No 10/02/23 11:18 FIBER OPTIC ASSEMBLY WORKER.MDOT Anesthesia Postop Eval I: Fluid Summary Crystalloid volume administer 1,200 10/02/23 11:18 FIBER OPTIC ASSEMBLY WORKER.MDOT (ml) Colloids volume administered ( ml) Blood Product volume administered (ml) Total IV fluid infused 1,200 10/02/23 11:18 FIBER OPTIC ASSEMBLY WORKER.MDOT Anesthesia Postop Eval I: Summary Notes Anesthesia Complication No 10/02/23 11:18 FIBER OPTIC ASSEMBLY WORKER.MDOT Anesthesia Complication Comment: Post-operative progress note Anesthesia: Postop Eval II Evaluation Mental status: Awake Pain Level: 0 nausea: No Vomiting: No Progress Note Post-operative progress note: pt in bigeminy, stable, will f/u with chemistry, troponin. 12 lead ekg
--- NOTE | 2023-10-02 11:35 | PCM.POSTANE2 ---
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 TOOL LAPPER.MDOT Spontaneous unlabored Yes 10/02/23 11:18 HAND TOOL LAPPER.MDOT respirations Mental status Awake,Calm 10/02/23 11:18 HAND TOOL LAPPER.MDOT nausea No 10/02/23 11:18 HAND TOOL LAPPER.MDOT Vomiting No 10/02/23 11:18 HAND TOOL LAPPER.MDOT Anesthesia Postop Eval I: Fluid Summary Crystalloid volume administer 1,200 10/02/23 11:18 HAND TOOL LAPPER.MDOT (ml) Colloids volume administered ( ml) Blood Product volume administered (ml) Total IV fluid infused 1,200 10/02/23 11:18 HAND TOOL LAPPER.MDOT Anesthesia Postop Eval I: Summary Notes Anesthesia Complication No 10/02/23 11:18 HAND TOOL LAPPER.MDOT Anesthesia Complication Comment: Post-operative progress note Anesthesia: Postop Eval II Evaluation Mental status: Awake Pain Level: 0 nausea: No Vomiting: No Progress Note Post-operative progress note: pt in bigeminy, stable, will f/u with chemistry, troponin. 12 lead ekg
--- NOTE | 2023-10-02 11:40 | SUR.PHASEI ---
this nurse noted vent bigemity on monitor. dr. villela ordered BMP, Mag, troponin, 12 lead ekg. patient unaware of PVCs. no change. resting comfortably. 12 lead reveals NSR with occasional PVCs.
[2023-10-02 12:00] LABS: Anion Gap 2 (5-15); BUN 18 mg/dL (7-18); BUN/Creat Ratio 23.4 RATIO (10-20); Chloride 111 mmol/L (98-107); Creatinine, Serum 0.77 mg/dL (0.55-1.02); EST Glomerular Filtration Rate 84 mL/min (>60); Est Glom Filt Rate - Afr Amer 101 mL/min (>60); Estimated Creatinine Clearance 105.53 ml/min; Glucose 144 mg/dL (74-106); Magnesium 2.2 mg/dL (1.6-2.6); Sodium Level 141 mmol/L (136-145); Troponin-I HS 7 pg/mL (3.0-54.0)
--- NOTE | 2023-10-02 14:41 | PN.HOSP_ITS ---
Reason for Visit Reason for Visit: Diagnoses Encounter for other preprocedural examination (10/02/23) Subjective Subjective 53-year-old female history of neuroendocrine tumor, hypertension, blood clots who presented to [facility] 10/02/2023 for right hip primary osteoarthritis with right minimally invasive direct anterior total hip replacement with Dr. Mc. Hospitalist consulted for postop med management. Patient seen after surgery, resting comfortably, patient no acute complaints. Objective Data Objective Data Vital Signs: Vital Signs Temp Pulse Resp BP Pulse Ox O2 Del Method O2 Flow Rate 97.9 F 63 18 124/63 H 98 Room Air 4 10/02/23 12:08 10/02/23 12:08 10/02/23 12:08 10/02/23 12:08 10/02/23 12:33 10/02/23 12:33 10/02/23 12:08 Oxygen Flow Rate (L/min) 4 Oxygen Delivery Method Room Air Weight: 106.6 kg Body Mass Index (BMI) 37.9 Intake & Output: Intake and Output for Last 24 Hours 09/30/23 10/01/23 10/02/23 23:59 23:59 23:59 Intake Total 1395.33 / 1395.33 Balance 1395.33 / 1395.33 Lab / Micro Data 09/14/23 14:09 10/02/23 11:36 Labs: Laboratory Results - last 24 hr 10/02/23 07:16: POC Glucose 90 10/02/23 07:41: POC PT 15.3 H, INR 1.4 10/02/23 11:36: Sodium 141, Potassium 4.0, Chloride 111 H, Carbon Dioxide 28.0, Anion Gap 2 L, BUN 18, Creatinine 0.77, Estim Creat Clear Calc 105.53, Est GFR (MDRD) Af Amer 101, Est GFR (MDRD) Non-Af 84, BUN/Creatinine Ratio 23.4 H, G lucose 144 H, Calcium 8.0 L, Magnesium 2.2, Troponin I High Sens 7 Micro: Microbiology 09/14/23 14:09 Swab (Method) Nasal Screen MRSA/MSSA - Final Radiography Diagnostic Testing: Radiology Impression Hip X-Ray 10/02/23 10:30 IMPRESSION: Status post right total hip replacement. There is good alignment. Postoperative soft tissue changes. Electronically Signed: Se Bateman MD at 11:04 EDT , Physical Exam Narrative General: Alert, oriented, no apparent distress HEENT: Atraumatic, normocephalic Eyes: Anicteric, normal conjunctiva, extraocular movements grossly intact Neck: Supple Respiratory: Clear to auscultation bilaterally, normal respiratory effort Cardiovascular: Regular rate and rhythm GI: Soft, nontender, nondistended Extremities: No edema Musculoskeletal: Moving all extremities Neuro: No overt focal neurological deficits Skin: No rashes appreciated Psych: Cooperative Assessment & Plan Assessment/Plan (1) Hx of blood clots: PLAN: Plan #Hx VTEs -Eliquis scheduled to resume tomorrow per Dr. Mc # Hypertension -Patient's lisinopril continued # Right hip primary osteoarthritis -Status post right minimally invasive direct anterior total hip replacement Dr. Mc 10/02/2023 -Pain control per primary -PT/OT #Hx of metastatic carcinoid tumor -Clinically stable #DVT ppx: Eliquis ordered Genet Gutierrez MD Time spent in the patient's overall evaluation,decision-making process, review of diagnostic data, adjustment of management, discussion with other providers, nursing nursing and ancillary staff involved in patient's care documentation, 20 Minutes Charges/Coding Visit Charges Office Visits / Consults: [id number] OV L3 Est 20min
[2023-10-02] MEDS: Cefazolin 1 GM/50 ML BAG IV ×2 (16:06→23:56)
[2023-10-02] MEDS: Ondansetron 4 MG/2 ML Vial IV (16:06)
[2023-10-02] MEDS: 0.9% Saline Lock 10 ML Syringe IV ×2 (16:06→23:58)
[2023-10-02] MEDS: Senna/Docusate Sodium 1 Tablet 2 TABLET PO (22:01)
[2023-10-03 00:08] VITALS: BP 102/57; PULSE 61; RESP 16; TEMP 36.4; O2SAT 98
[2023-10-03] MEDS: Acetaminophen 500 MG Tablet 1000 MG PO (05:43)
[2023-10-03 05:45] VITALS: BP 102/63; PULSE 64; RESP 16; TEMP 36.6; O2SAT 98
[2023-10-03 07:01] LABS: Hematocrit 32.3 % (37-47); Hemoglobin 10.3 g/dL (12.0-15.0); Mean Corp Hgb Conc 31.9 g/dL (32-36); Mean Platelet Vol. 9.3 fl (6.2-12.0); Platelet Count 251 K/mm3 (150-450); RBC Distribution Width CV 15.6 % (11.6-14.6); RBC Distribution Width SD 52.2 fl (35.1-43.9); Red Blood Count 3.55 M/mm3 (4.2-5.4); White Blood Count 10.7 K/mm3 (4.4-11.0)
[2023-10-03 07:35] LABS: Anion Gap 4 (5-15); BUN 19 mg/dL (7-18); Calcium,Total 8.7 mg/dL (8.5-10.1); Chloride 109 mmol/L (98-107); Creatinine, Serum 0.76 mg/dL (0.55-1.02); EST Glomerular Filtration Rate 85 mL/min (>60); Est Glom Filt Rate - Afr Amer 103 mL/min (>60); Estimated Creatinine Clearance 106.92 ml/min; Glucose 100 mg/dL (74-106); Potassium 4.3 mmol/L (3.5-5.1); Sodium Level 140 mmol/L (136-145)
--- NOTE | 2023-10-03 07:48 | PCM.PN.ORT ---
Subjective Subjective The patient was sitting in bed upon examination. Patient denies any chest pain, shortness of breath, dizziness, lightheadedness, nausea or vomiting, or calf pain. Pain is controlled on medications. No adverse overnight events. Patient overall is doing well today. Pain has been adequately controlled for the hip. Patient does have past history of pulmonary embolism and DVT. She has also been treated in the past for cancer. She is resuming her Eliquis that she normally takes for history of DVTs. Patient has been up walking and tolerating the hip replacement well. She does have outpatient physical therapy established. Objective Data Objective Data Vital Signs: Vital Signs Temp Pulse Resp BP Pulse Ox O2 Del Method O2 Flow Rate 97.9 F 64 16 102/63 98 Room Air 4 10/03/23 05:45 10/03/23 05:45 10/03/23 05:45 10/03/23 05:45 10/03/23 05:45 10/03/23 05:45 10/02/23 12:08 Oxygen Flow Rate (L/min) 4 Oxygen Delivery Method Room Air Weight: 106.6 kg Body Mass Index (BMI) 37.9 Intake & Output: Intake and Output for Last 24 Hours 10/01/23 10/02/23 10/03/23 23:59 23:59 23:59 Intake Total 1445.33 / 1445.33 850 / 850 Output Total 600 / 600 Balance 845.33 / 845.33 850 / 850 Lab / Micro Data 10/03/23 06:22 10/03/23 06:22 Labs: Laboratory Results - last 24 hr 10/02/23 07:16: POC Glucose 90 10/02/23 07:41: POC PT 15.3 H, INR 1.4 10/02/23 11:36: Sodium 141, Potassium 4.0, Chloride 111 H, Carbon Dioxide 28.0, Anion Gap 2 L, BUN 18, Creatinine 0.77, Estim Creat Clear Calc 105.53, Est GFR (MDRD) Af Amer 101, Est GFR (MDRD) Non-Af 84, BUN/Creatinine Ratio 23.4 H, Glucose 144 H, Calcium 8.0 L, Magnesium 2.2, Troponin I High Sens 7 10/03/23 06:22: WBC 10.7, RBC 3.55 L, Hgb 10.3 L, Hct 32.3 L, MCV 91.0, MCH 29.0, MCHC 31.9 L, RDW Std Deviation 52.2 H, RDW Coeff of José 15.6 H, Plt Count 251, MPV 9.3, Sodium 140, Potassium 4.3, Chloride 109 H, Carbon Dioxide 27.0, Anion Gap 4 L, BUN 19 H, Creatinine 0.76, Estim Creat Clear Calc 106.92, Est GFR (MDRD) Af Amer 103, Est GFR (MDRD) Non-Af 85, BUN/Creatinine Ratio 25.0 H, Glucose 100, Calcium 8.7 Micro: Microbiology 09/14/23 14:09 Swab (Method) Nasal Screen MRSA/MSSA - Final Radiography Diagnostic Testing: Radiology Impression Hip X-Ray 10/02/23 10:30 IMPRESSION: Status post right total hip replacement. There is good alignment. Postoperative soft tissue changes. Electronically Signed: Se Bateman MD at 11:04 EDT , Physical Exam Narrative Vital signs stable and afebrile. SCDs and MARY ANN hose are in place bilaterally Right hip is soft and supple Patient is able to plantarflex and dorsiflex actively. Sensation is intact to light touch to saphenous, sural, superficial and deep peroneal, and tibial distribution. Dressing is clean dry and intact. Negative Homans bilaterally, negative signs and symptoms of DVT. Const alert, oriented x3 and no apparent distress Assessment & Plan Assessment/Plan (1) Status post total hip replacement, right: PLAN: 1. S/P direct right total hip arthroplasty POD #1 2. Continue Pain Medications: Tylenol and oxycodone 3. DVT Prophylaxis: Patient has resumed her Eliquis postoperatively. Will cover her for DVT prophylaxis. Recommend to continue open SCDs and up and moving for 1 hour while awake for prevention of DVT. 4. PT/OT: Weightbearing as tolerated with walker. Continue anterior hip precautions 5. H & H: 10.3/32.3, asymptomatic. Labs have been reviewed and stable 6. Encouraged Incentive Spirometry 7. Patient is aware of postoperative constipation that can occur from 1-3 days postoperatively. Will continue with senna 2 tablets twice daily until first bowel movement. Patient was advised if not having a bowel movement after day 3 she is to contact orthopedics so appropriate change can be made. Patient voiced understanding. 8. Continue postoperative medical treatment per medicine 9. Disposition: Plan will be for discharge home this afternoon as long as patient remains medically stable, pain adequately controlled, and tolerating physical therapy. Patient does have outpatient physical therapy established on October 05, 2023. She will follow-up per postoperative instructions. Patient would like her prescriptions E scrib[facility] to [facility]. Upon discharge she will contact our office with any concerns or questions. I have reviewed the [place] Automated Rx Reporting System (OARRS) report for this patient for refill pattern and other prescriber involvement as part of the appropriate surveillance for the provision of acute and chronic controlled medications. The report was requested and reviewed on the date of this entry and was considered in the prescribing process. This dictation was created using voice recognition software. Phonetic and/or grammatical errors may exist.
--- NOTE | 2023-10-03 07:51 | PCM.DC ---
Discharge Instructions Diet Discharge Diet: No restrictions Activity Discharge Activity: May Not Drive (No driving for 6 weeks postoperatively. Must also be off all narcotics and able to walk 100 feet without the use of cane or walker.) May shower in (days): 1 (only if incision is dry and without drainage. Do NOT soak/submerge in tub/pool/justin/stream/hot tub.)) Ice area for (Minutes): 20 (Every 1-2 hours while awake[address] place barrier between ice and skin.) Weight Bearing Status: Weight bearing as tolerated Keep extremity elevated above heart level: Operative Extremity Dressing / Incision Call your doctor if your incision/area has: Continuous Slow Oozing, Sudden Increased Bleeding, Increased Pain/ Swelling, Increased Redness and Foul Smelling Discharge Call your doctor if you observe: Fever of 101 or Higher, Shortness of breath, Chest pain, Calf discomfort and Uncontrolled pain Remove Dressing in: 4 days (Okay to remove dressing on October 07, 2023) Additional Dressing/Incision Instructions:: Follow [facility] Post-op Instructions. Once postoperative dressing has been removed, only use gentle soap and water over the incision. Do not use any ointments, Neosporin, salves, alcohol pads over the incision for 6 weeks postoperatively. Do not submerge underwater for 6 weeks postoperatively. Continue with MARY ANN hose/elastic stockings for 2 weeks postoperatively. May remove at nighttime but needs to be placed back on the leg during the day. Do NOT use alcohol with narcotic pain medication. Do NOT make important decisions while taking narcotic medication. If you have problems with taking your medication (rash, itching, nausea, etc.) call the office at once. Follow Up Care Test Results: Test results from this visit will be discussed in further detail at your follow-up appointment, if applicable. Discharge Plan Admission Admit Date/Time: 10/02/23 07:02 Attending Provider: Valentin Mc Primary Care Provider: Jo Ann Vargas Consulting Providers: Genet Gutierrez Discharge Orders/Prescriptions Prescriptions: New acetaminophen 500 mg Tablet 1,000 mg PO Q8 14 Days Qty: 84 0RF Rx Instructions: Do not take more than 3000 mg Tylenol in a 24-hour period. oxycodone 5 mg Tablet 5 - 10 mg PO Q4H PRN PRN (Reason: Pain Score 4-10) 7 Days Qty: 42 0RF Continued Eliquis 5 mg tablet 5 mg PO BID lisinopril 20 mg tablet 20 tablet PO DAILY cholecalciferol (vitamin D3) 10 mcg (400 unit) capsule 10 mcg PO DAILY docusate sodium [DOK] 100 MG capsule 100 mg PO BID PRN PRN (Reason: Constipation) Qty: 60 0RF Patient Comments: constipation Referrals / Follow Up: Physical,Therapy [Other] - 10/05/23 10:00 am Anali Grimaldo PA [Med Staff - [facility]] - 10/17/23 10:15 am Jo Ann Vargas PA [Primary Care Provider] - Disposition Disposition (needs filled in before D/C Order can be placed): Home, Self Care
--- NOTE | 2023-10-03 09:00 | CASEMGMT ---
CARISSA MILIAN Assessment: Face to Face with pt for initial transition planning/care coordination assessment. CARISSA MILIAN introduced self and role at [facility], pt voices understanding and consents to assessment. Pt is A&O x4 and answers all questions appropriately at this time. Pt sitting up in chair in no distress, pt sitting at bedside. Pt agreeable to CARISSA MILIAN discussing DC plan with in the room. Care providers, pharmacy, and demographics verified/updated. Admitting Dx: Total Hip Strata Score: 2 PCP: Sam Specialists: Carly, Web Site Developer; Jesusita, Orthopedic. Preferred Pharmacy: [facility] Insurance: [employer] Prescription Benefit: yes LNOK: , Brother Living Arrangements: Pt lives with significant other in a 2 story home with 2 steps to enter. Pt reports I with ADLs and IADLs. Transportation: Pt drives self and denies concerns with transportation. DME: Wheeled Walker, cane, bedside commode, raised toilet seat, shower chair. HHC/SNF: Denies Hx of. Pt states no concerns with going home at time of dc. Pt reports starts PT on 10/04 and will schedule a F/U appointment with [facility] in 2 weeks, and follow up with her PCP. Pt states no further concerns/needs. CM to follow. Advised pt to ask CM if any further question/concerns/needs arise, voices understanding. Pt Goal: Home Plan: Home, CARISSA MILIAN to follow plan of care. CARISSA Godinez CM
[2023-10-03] MEDS: APIXABAN 5 MG TABLET PO (11:11)
[2023-10-03] MEDS: Senna/Docusate Sodium 1 Tablet 2 TABLET PO (11:12)
[2023-10-03] MEDS: Famotidine 20 MG Tablet PO (11:12)
--- NOTE | 2023-10-03 12:28 | PHA.DC.MC.R ---
Pharmacy [facility] has performed discharge medication reconciliation and counseling for this patient. 1. ACETAMINOPHEN 1000MG PO Q8 2. OXYCODONE 5-10MG PO Q4H PRN PAIN The patient's discharge medication list was reviewed for discrepancies and discrepancies were resolved. The patient was counseled on the following discharge medications and changes in medications for homegoing were reviewed. The Reason for Use, instructions for use, and potential side effects were reviewed for all new medications. The patient's questions regarding all of their medications were answered. The patient was able to verbally demonstrate an understanding of their discharge medications. Medications at Discharge Home Medications docusate sodium 100 mg capsule (DOK) 100 mg PO BID PRN PRN Constipation #60 caps 01/02/14 apixaban 5 mg tablet (Eliquis) 5 mg PO BID 10/01/21 lisinopril 20 mg tablet 20 tablet PO DAILY 10/01/21 cholecalciferol (vitamin D3) 10 mcg (400 unit) capsule 10 mcg PO DAILY 11/09/21 acetaminophen 500 mg tablet 1,000 mg (2 x 500 mg) PO Q8 14 days #84 tabs 10/03/23 oxycodone 5 mg tablet 5 - 10 mg (1 - 2 x 5 mg) PO Q4H PRN PRN Pain Score 4-10 7 days #42 tabs 10/03/23
== END 2023-10-03 11:32 | disposition home or self-care (01) ==
LOC: SDC 11:39 → MS3 11:39
PROVIDERS: Anesthesiology; Admitting Provider Specialist; Referring Provider Specialist; Visit Provider Specialist
PROC: (CPT 27284; principal; 2023-10-02 08:20)
DX: M16.11 Unilateral primary osteoarthritis, right hip (principal); I10 Essential (primary) hypertension; Z86.718 Personal history of other venous thrombosis and embolism; Z86.711 Personal history of pulmonary embolism; Z87.891 Personal history of nicotine dependence; Z79.01 Long term (current) use of anticoagulants; Z79.899 Other long term (current) drug therapy; R06.02 Shortness of breath
CPT/HCPCS: 27130; 01214; 36415; 36416; 73501; 73502; 76000; 80048; 82040; 82962; 83735; 84484; 85025; 85027; 85610; 87081; 88305; 88311; 93005; 96365; 96366; 96375; 97162; 97166; 97530; 97535; 99221; C1776; J7120; A4216; G0378; J2405; J3475